=== PATIENT | female | born 1945 | race Caucasian/White ===

== ENCOUNTER → 2018-10-26 | Outpatient (CLI) | payer MEDICARE ==
[~2018-10-26] MED LIST: CYAN1LOZ SL; HYDR-3583 PO; LVT.05T PO; SIMV10TA3 PO
--- NOTE | 2018-10-26 19:23 | Diagnostic Imaging Report ---
INDICATION: Screening. The current study was also evaluated with a Computer Aided Detection (CAD) system. 3-D Tomographic imaging was also performed. Comparison made with prior examinations from 03/03/2018, 07/28/2017, 05/27/2016, and 04/10/2015. FINDINGS: There are scattered fibroglandular densities bilaterally. There are benign-type calcifications in both breasts. There is no dominant mass, spiculated lesion, or suspicious calcification identified. The skin, nipples, and axillae are unremarkable. IMPRESSION: Benign. ACR BI-RADS Category 2: Benign findings. Result letter will be mailed to the patient. Note: At least 10% of breast cancer is not imaged by mammography. Dictated by: Dictated on workstation # [id number]
== END ==
LOC: RAD 15:19
PROVIDERS: ATTEND Family Medicine
DX: Z12.31 Encounter for screening mammogram for malignant neoplasm of breast (principal)
CPT/HCPCS: 77067

== ENCOUNTER → 2020-11-05 | Outpatient (CLI) | payer MEDICARE ==
--- NOTE | 2020-11-05 13:57 | Diagnostic Imaging Report ---
INDICATION: Right hip pain 2 views of the right hip show no fracture, dislocation or other acute abnormalities. IMPRESSION: Negative right hip. Dictated by: Dictated on workstation # [id number]
== END ==
LOC: RAD 13:34
PROVIDERS: ATTEND Family Medicine
DX: M25.551 Pain in right hip (principal)
CPT/HCPCS: 73502

== ENCOUNTER → 2020-12-10 | Outpatient (CLI) | payer MEDICARE ==
--- NOTE | 2020-12-10 10:11 | Diagnostic Imaging Report ---
PROCEDURE: MRI lumbar spine. TECHNIQUE: Multiplanar, multisequence MRI of the lumbar spine was performed without contrast. INDICATION: Back pain. FINDINGS: There is mild right convexity degenerative lumbar rotoscoliosis. The vertebral body heights are well maintained. There is no spondylolysis or spondylolisthesis. No fractures are identified. Conus medullaris is seen at L1 and is normal in appearance. At T12-L1, there is no spinal or neural foraminal encroachment. At L1-L2, there is annular bulging and facet disease. There is slight effacement of the ventral thecal sac and minimal neural foraminal encroachment. At L2-L3, there are some Modic changes in the endplates. There is annular bulging, facet disease, and thickening of the ligamentum flavum. There is mild spinal stenosis with encroachment upon the lateral recess bilaterally. There is moderate bilateral neural foraminal encroachment. At L3-L4, there is annular bulging, facet disease, and thickening of the ligamentum flavum. There is mild spinal stenosis with encroachment upon the lateral recess bilaterally, left greater than right. There is moderate left and mild right neural foraminal encroachment. At L4-L5, there is annular bulging, facet disease, and thickening of the ligamentum flavum. There is [id number] spinal stenosis with encroachment upon the lateral recess bilaterally, left greater than right. There is moderate bilateral neural foraminal encroachment. At L5-S1, there is annular bulging and facet disease. There is mild spinal stenosis with encroachment upon the lateral recess bilaterally. There is moderate right and mild left neural foraminal encroachment. Aorta is nonaneurysmal. There is a cyst in the right kidney. There are no other focal soft tissue abnormalities. IMPRESSION: Diffuse lumbar spondylosis and multilevel degenerative disc disease as described. Dictated by: Dictated on workstation # [id number]
--- NOTE | 2020-12-10 10:11 | Diagnostic Imaging Report ---
EXAMINATION: Magnetic resonance imaging of the pelvis and right hip without contrast DATE: December 10, 2020. COMPARISON: Right hip radiographs November 05, 2020. INDICATION: 75-year-old female, right hip, low back pain. TECHNIQUE: Magnetic Resonance Imaging sequences were performed of the pelvis without contrast. TENDONS AND MUSCLES: The gluteus hue muscles and their origins and insertions are intact bilaterally. The tendons and muscles of the greater trochanter - gluteus minimus, piriformis and gluteus medius - are intact bilaterally. Both common hamstring attachments on the ischial tuberosities are intact and the extensor muscles of the thigh are intact. The visualized portions of the flexors and adductor muscles of the thigh and their attachments on the pelvis and hips are intact. Both iliopsoas and iliacus muscles are intact. The bilateral iliopsoas tendons are intact. HIPS AND SACROILIAC JOINTS: The contours of the femoral heads and acetabuli are smooth and symmetric. There is no identified fluid-filled labral tear or paralabral cyst. The articular cartilage appears grossly intact. There is no hip joint effusion. The sacroiliac joints are unremarkable. LUMBAR SPINE: There is multilevel severe disc height loss of the lumbar spine. Please see separately dictated same day MRI lumbar spine report for further evaluation of the lumbar spine. BONE: There is no acute fracture, bone contusion, or evidence of osteonecrosis. BURSAE AND SOFT TISSUES: The bursae and soft tissues surrounding the pelvis and hips are within normal limits. IMPRESSION: 1. Unremarkable musculoskeletal evaluation of the pelvis and bilateral hips. 2. Multilevel severe disc degenerative changes of the lumbar spine. Please see separately dictated same day MRI lumbar spine report for further evaluation of the lumbar spine. Dictated by: Dictated on workstation # [id number]
== END ==
LOC: RAD 08:27
PROVIDERS: ATTEND Family Medicine
DX: M47.816 Spondylosis without myelopathy or radiculopathy, lumbar region (principal); M47.817 Spondylosis without myelopathy or radiculopathy, lumbosacral region; M51.26 Other intervertebral disc displacement, lumbar region; M51.27 Other intervertebral disc displacement, lumbosacral region; M48.061 Spinal stenosis, lumbar region without neurogenic claudication; M48.07 Spinal stenosis, lumbosacral region; N28.1 Cyst of kidney, acquired
CPT/HCPCS: 72148; 73721

== ENCOUNTER 2021-01-06 10:22 | Outpatient (RCR) | payer MEDICARE | END 2021-02-05 15:26 | disposition home or self-care (01) | PROVIDERS: ATTEND Family Medicine | DX: M25.551 Pain in right hip (principal); R53.1 Weakness; E07.9 Disorder of thyroid, unspecified ==

== ENCOUNTER → 2021-08-18 | Outpatient (CLI) | payer MEDICARE ==
--- NOTE | 2021-08-18 13:22 | Diagnostic Imaging Report ---
INDICATION: Routine screening. COMPARISON: 10/26/2018. TECHNIQUE: 2D and 3D bilateral screening mammography was performed with CAD. FINDINGS: Scattered fibroglandular densities are identified bilaterally. There are benign calcifications bilaterally. The nodular densities in the right breast appear stable. No spiculated mass or malignant-appearing microcalcifications are seen. The axillae are unremarkable. IMPRESSION: No mammographic features suspicious for malignancy are identified. ACR BI-RADS Category 2: Benign findings. Result letter will be mailed to the patient. Note: At least 10% of breast cancer is not imaged by mammography. Dictated by: Dictated on workstation # [id number]
--- NOTE | 2021-08-18 15:53 | Diagnostic Imaging Report ---
INDICATION: Postmenopausal screening COMPARISON: None FINDINGS: AP Spine L1-L4: [BMD (g/cm2): 1.051] [T-Score: -1.2] [Z-Score: 0.2] [BMD Previous: NA] [BMD % Change: NA] LT Hip Neck: [BMD (g/cm2): 0.864] [T-Score: -1.2] [Z-Score: 0.6] LT Hip Total: [BMD (g/cm2):0.875] [T-Score:-1.1] [Z-Score: 0.6] [BMD Previous: NA] [BMD % Change: NA] RT Hip Neck: [BMD (g/cm2):0.795] [T-Score:-1.8] [Z-Score:0.0] RT Hip Total: [BMD (g/cm2):0.815] [T-score:-1.5] [Z-Score:0.1] [BMD Previous:NA] [BMD % Change:NA] *Indicates significant change from prior examination based on 95% confidence level. World Health Organization criteria for BMD interpretation classify patients as Normal (T-score at or above -1.0), Osteopenic (T-score between -1.0 and -2.5) or Osteoporotic (T-score at or below -2.5). LIMITATIONS AND MODIFICATION: None. FRACTURE RISK (FRAX SCORE): The ten year probability of (%): Major Osteoporotic Fracture: [19.5] Hip Fracture: [4.5] IMPRESSION: 1. Osteopenia (Low bone mass). 2. Baseline examination. 3. See below National Osteoporosis Foundation guidelines on when to potentially initiate pharmacologic therapy. Based on the National Osteoporosis Foundation Guidelines, pharmacologic treatment should be initiated in any of the following, unless clinical conditions suggest otherwise: * Any patient with prior fragility fracture of the hip or vertebrae. A spine fracture indicates 5X risk for subsequent spine fracture and 2X risk for subsequent hip fracture. * Osteoporosis (T-score <-2.5). * Postmenopausal women and men age 50 and older with low bone mass/osteopenia (T-score between -1.0 and -2.5) by DXA and 10-year major osteoporotic fracture greater than 20% or a 10-year probability of hip fracture greater than 3%. These fracture risks are supplied above in the FRAX score, if applicable. * Clinician judgement and/or patient preferences may indicate treatment for people with 10-year fracture probabilities above or below these levels. Dictated by: Dictated on workstation # [id number]
== END ==
LOC: RAD 09:55
PROVIDERS: ATTEND Family Medicine
DX: Z12.31 Encounter for screening mammogram for malignant neoplasm of breast (principal); Z78.0 Asymptomatic menopausal state; M85.80 Other specified disorders of bone density and structure, unspecified site
CPT/HCPCS: 77063; 77067; 77080

== ENCOUNTER 2021-12-17 00:20 | Emergency (ER) | payer MEDICARE ==
[~2021-12-17] VITALS: Ht 158 cm; Wt 75.0 kg
[2021-12-17] MEDS ORDERED: HYDROcodone/APAP 5 MG/325 MG (LORTAB) TAB PO ONE (00:45)
[2021-12-17] MEDS ORDERED: KETOROLAC 60 MG/2 ML VIAL IM ONE (00:45)
[2021-12-17] MEDS ORDERED: KETO10TA PO (00:51)
[2021-12-17] MEDS ORDERED: ACHD5005 PO (00:51)
--- NOTE | 2021-12-17 00:53 | ED General ---
General Chief Complaint: Upper Extremity Stated Complaint: LEFT ARM & NECK PX,SWOLLEN BREAST Nursing Triage Note: C/O LEFT NECK PAIN X3 WEEKS, LEFT ARM PAIN X2 WEEKS. DENIES INJURY. SEEN BY PCP 12/08/21 GIVEN STEROIDS/MUSCLE RELAXANT WITHOUT IMPROVEMENT. Source of Information: Patient Exam Limitations: No Limitations History of Present Illness Date Seen by Provider: Dec 17, 2021 Time Seen by Provider: 00:30 Initial Comments 76-year-old female presents to the emergency department today for left-sided neck pain, arm pain. Symptoms started 2 weeks ago. She saw her primary care doctor at the outset of the symptoms and was given an injection of steroid, p.o. steroids for 6 days as well as Flexeril. She states her symptoms have persisted though she does admit that they were better for a couple of days after the steroids. She denies any known injury. Pain is dull throbbing in her left lateral neck with a shooting pain down the left posterior arm to about the mid forearm. She has never had similar symptoms in the past. No known injury. No upper extremity weakness numbness or tingling. No paresthesias. Allergies and Home Medications Allergies Coded Allergies: morphine (Unverified Allergy, Unknown, NAUSEA, 11/05/20) Patient Home Medication List Home Medication List Reviewed: Yes Levothyroxine Sodium (Levothyroxine 50 Mcg Tab) 50 Mcg Tablet, 50 MCG PO DAILY, (Reported) Entered as Reported by: LESLI SCHMIDT on 09/13/12611 Last Action: Last Taken Edited Simvastatin (Simvastatin) 10 Mg Tablet, 10 MG PO HS, (Reported) Entered as Reported by: LESLI SCHMIDT on 09/13/12611 Last Action: Last Taken Edited Discontinued Medications Cyanocobalamin/Cobamamide (B12 5,000 Mcg Microlozenge) 1 Each Lozenge, 2,500 MCG SL DAILY, (Reported) Discontinued Reason: No Longer Taking Entered as Reported by: LESLI SCHMIDT on 09/13/12611 Last Action: Discontinued Hydrocodone Bit/Acetaminophen (Lortab 5 Mg) 1 Tab Tab, 1-2 EA PO Q 4 - 6 HR PRN, (Reported) Discontinued Reason: No Longer Taking Entered as Reported by: SULAIMAN OSUNA on 09/25/12 1142 Last Action: Discontinued Review of Systems Review of Systems Constitutional: no symptoms reported EENTM: no symptoms reported Respiratory: no symptoms reported Cardiovascular: no symptoms reported Gastrointestinal: no symptoms reported Genitourinary: no symptoms reported Musculoskeletal: neck pain, other (Left arm pain) Skin: no symptoms reported Psychiatric/Neurological: No Symptoms Reported Hematologic/Lymphatic: No Symptoms Reported Immunological/Allergic: no symptoms reported Past Gwkjaqc-Swkucp-Idfwzh Hx Patient Social History Tobacco Use?: No Substance use?: No Alcohol Use?: No Pt feels they are or have been: No Immunizations Up To Date First/Initial COVID19 Vaccinat: X2 Past Medical History Surgery/Hospitalization HX: HIGH CHOLESTEROL, HYPOTHRYOIDISM, CHOLECYSTECTOMY, EYE, TUBAL, [place] Reproductive Disorders: No [employer] History: Menopausal Sexually Transmitted Disease: No Hypothyroidsim Family Medical History Reviewed Nursing Family Hx No Pertinent Family Hx Physical Exam Vital Signs Vital Signs - First Documented 12/17/21 00:28 Temp 36.8 Pulse 104 Resp 18 B/P (MAP) 164/102 (122) Pulse Ox 95 O2 Delivery Room Air Capillary Refill : Less Than 3 Seconds Height, Weight, BMI Height: '" Weight: lbs. oz. kg; 30.00 BMI Method: General Appearance: No Apparent Distress, WD/WN HEENT: PERRL/EOMI, TMs Normal, Normal ENT Inspection, Pharynx Normal Neck: Full Range of Motion, Normal Inspection, Supple, Other (Tenderness palpation left lateral neck. No midline tenderness.) Respiratory: Chest Non Tender, Lungs Clear, Normal Breath Sounds, No Accessory Muscle Use, No Respiratory Distress Cardiovascular: Regular Rate, Rhythm, No Edema, No Gallop, No JVD, No Murmur, Normal Peripheral Pulses Gastrointestinal: Normal Bowel Sounds, No Organomegaly, No Pulsatile Mass, Non Tender, Soft Back: Normal Inspection, No CVA Tenderness, No Vertebral Tenderness Extremity: Normal Capillary Refill, Normal Inspection, Normal Range of Motion, Non Tender, No Calf Tenderness, No Pedal Edema Reflexes: 4+ Bicep (R), 4+ Bicep (L), 4+ Tricep (R), 4+ Tricep (L) Skin: Normal Color, Warm/Dry Lymphatic: No Adenopathy Progress/Results/Core Measures Suspected Sepsis SIRS Temperature: Pulse: 104 Respiratory Rate: 18 Blood Pressure 164 /102 Mean: 122 Results/Orders My Orders Orders - EVELYN FOOTE DO Ketorolac Injection (Toradol Injection) (12/17/21 00:45) Hydrocodone/Apap 5/325 Tablet (Lortab 5 (12/17/21 00:45) Vital Signs/I&O 12/17/21 00:28 Temp 36.8 Pulse 104 Resp 18 B/P (MAP) 164/102 (122) Pulse Ox 95 O2 Delivery Room Air Capillary Refill : Less Than 3 Seconds Blood Pressure Mean: 122 Departure Communication (Admissions) Patient is hemodynamically stable. Left lateral neck pain with what appears to be radial radiculopathy. No indication for imaging here and she has no weakness whatsoever. We will go ahead and refer her to Dr. MASON. She has seen her primary care doctor for this already. She is comfortable ALISHA current plan of care discharged in stable condition with supportive care here with pain medications. Impression Primary Impression: Neck pain Additional Impression: Radiculopathy Qualified Codes: M54.12 - Radiculopathy, cervical region Disposition: HOME, SELF-CARE Condition: Stable Departure-Patient Inst. Referrals: LARRY WILKS MD (PCP/Family) Primary Care Physician WILLEM MASON MD Patient Instructions: Neck Pain, Neck Pain Exercises Add. Discharge Instructions: Please take medications as prescribed as needed. Do not drive or make important decisions while taking hydrocodone as it may make you drowsy. I recommend taking a stool softener while you are taking this as it may cause constipation as well. Follow-up with Dr. MASON by calling to schedule an appointment. R eturn to the emergency department for any severe concerns All discharge instructions reviewed with patient and/or family. Voiced understanding. Scripts Hydrocodone Bit/Acetaminophen (HYDROcodone/APAP 5 MG/325 MG TAB) 1 Tab Tab 1 TAB PO Q6H for Pain for 3 Days, #12 TAB Prov: DARYEVELYN L DO 12/17/21 Ketorolac Tromethamine (Ketorolac Tromethamine) 10 Mg Tablet 10 MG PO Q8H for Pain for 5 Days, #15 TAB Prov: EVELYN FOOTE DO 12/17/21 EVELYN FOOTE DO Dec 17, 2021 00:53
[2021-12-17 01:01] VITALS: BP 144/103
== END 2021-12-17 01:02 | disposition home or self-care (01) ==
LOC: EDUNIT# 00:20 → ER 00:24
DX: M54.12 Radiculopathy, cervical region (principal)
CPT/HCPCS: 99284

== ENCOUNTER → 2021-12-22 | Outpatient (CLI) | payer MEDICARE ==
[~2021-12-22] MED LIST changes: +ACHD5005 PO; +KETO10TA PO
--- NOTE | 2021-12-22 10:09 | Diagnostic Imaging Report ---
CLINICAL INDICATION: Patient has neck and left arm shoulder pain. No known injury. EXAM: MRI of the cervical spine performed without IV contrast. Sequences include sagittal T2, sagittal T1, sagittal T2 fat-sat, and axial T2. COMPARISON: None. FINDINGS: There is no acute cervical spine fracture or dislocation. There are mild to moderately hypertrophic spurs involving the cervical spine. Limited visualization of posterior fossa shows no significant abnormality. There is areas of localized cord deformity of the cervical cord seen at the C3-C4 and C4-C5 level. Otherwise cervical cord is unremarkable. There is no definite abnormal signal. There is no significant paraspinal soft tissue abnormality. C1-C2: There are degenerative spurs involving the atlantoodontoid interval anteriorly. There is no significant central canal stenosis. C2-C3: There is moderate left facet arthropathy/hypertrophy and mild right facet arthropathy. There is mild left neural foramen narrowing. There is no significant central canal or right neural foramen narrowing. C3-C4: There is diffuse disk bulge, moderate loss of disk space height. There are hypertrophic disk spurs posteriorly and bilateral uncinate regions. There is moderate left facet arthropathy/hypertrophy and mild right facet arthropathy. There is a moderate sized central canal stenosis. There is severe left neural foramen narrowing and mild right neural foramen narrowing. C4-C5: There is diffuse disk bulge with mild loss of disk space height. There are disk spurs posteriorly and bilateral uncinate spurs. There is severe left neural foramen narrowing and mild to moderate right neural foramen narrowing. There is moderate central canal stenosis. C5-C6: There is a diffuse disk bulge with mild loss of disk space height. There is disk spurs and bilateral uncinate spurs. There is ligamentum flavum buckling. There is mild bilateral facet arthropathy. There is severe left neural foramen narrowing and mild to moderate neural foramen narrowing. C6-C7: There is a diffuse disk bulge with superimposed posterior disk herniation. There is mild facet arthropathy. There is no significant central canal stenosis. There is severe left neural foramen narrowing and moderate to severe neural foramen narrowing. C7-T1: There is no significant central canal or neural foramen narrowing. IMPRESSION: 1. 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 Dictated by: Dictated on workstation # [id number]
== END ==
LOC: RAD 09:30
PROVIDERS: ATTEND Family Medicine
DX: M47.812 Spondylosis without myelopathy or radiculopathy, cervical region (principal); M50.223 Other cervical disc displacement at C6-C7 level; M50.322 Other cervical disc degeneration at C5-C6 level; M48.02 Spinal stenosis, cervical region
CPT/HCPCS: 72141

== ENCOUNTER 2022-01-26 11:09 | Outpatient (RCR) | payer MEDICARE | END 2022-02-01 | disposition home or self-care (01) | PROVIDERS: ATTEND Physician Assistant | DX: M54.12 Radiculopathy, cervical region (principal) ==